=== PATIENT | female | born 1965 | race African-American/Black ===

== ENCOUNTER 2019-10-13 10:28 | Observation (INO) ==
[2019-10-13] MEDS ORDERED: ACETAMINOPHEN 325 MG TABLET PO PRN (16:36)
[2019-10-13] MEDS ORDERED: MAGNESIUM HYDROXIDE SUSP 30 ML UDCUP PO PRN (16:36)
[2019-10-13] MEDS ORDERED: PROMETHAZINE INJ 25 MG in SODIUM CHLORIDE 0.9% 50 ML IV PRN (16:43)
[2019-10-13] MEDS: DEXTROSE 5% LACTATED RINGERS 1,000 ML IV SCH (17:11)
[2019-10-13] MEDS: ENOXAPARIN 30 MG/0.3 ML SYRINGE SUBCUT SCH (17:12)
[2019-10-13] MEDS: KETOROLAC 30 MG/1 ML VIAL IV PRN (17:15)
[2019-10-13] MEDS: HYDROmorphone 2 MG/1 ML VIAL IV PRN ×2 (17:19→21:36)
[2019-10-13] MEDS: WATER SWISH/SWAL PRN ×2 (18:29→21:35)
[2019-10-13] MEDS: VISCOUS LIDOCAINE 2% SWISH/SWAL PRN ×2 (18:29→21:35)
[2019-10-13] MEDS: PANTOPRAZOLE 40 MG VIAL IV SCH (21:35)
[2019-10-14] MEDS: HYDROmorphone 2 MG/1 ML VIAL IV PRN ×2 (02:17→20:48)
[2019-10-14] MEDS: DEXTROSE 5% LACTATED RINGERS 1,000 ML IV SCH ×3 (02:48→20:47)
[2019-10-14] MEDS: LEVOTHYROXINE 100 MCG VIAL IV SCH (06:09)
[2019-10-14] MEDS ORDERED: diphenhydrAMINE 50 MG/1 ML VIAL IV PRN (06:56)
[2019-10-14] MEDS ORDERED: ZOLPIDEM 5 MG TABLET PO PRN (06:57)
[2019-10-14 07:33] LABS: Basophils % 0.4 % (0.0-0.8); Eosinophils # 0.1 10*3/uL (0.0-0.87); Eosinophils % 1.2 % (0.00-10.9); Hematocrit 36.7 VOL% (35.7-47.0); Immature Granulocytes % 0.3 %; Immature Granulocytes Absolute 0.02 #; Lymphocytes % 27.6 % (21.3-54.2); Mean Corpuscular Volume 91.3 FL (87-102); Monocytes % 8.1 % (1.7-12.7); Neutrophils % 62.4 % (38.7-73.9); Platelet Count 396 T/CUMM (130-400); Red Blood Count 4.02 MC/CUMM (3.8-5.5); Red Cell Distribution Width 13.1 % (9.3-17.3); White Blood Count 7.4 T/CUMM (4-12)
[2019-10-14 07:57] LABS: Albumin 3.1 G/DL (3.4-5.0); Bilirubin,Total 0.6 MG/DL (0.2-1.0); Calcium 8.7 MG/DL (8.5-10.1); Osmolality,Calculated 268.1 MOS/KG (273-304); Total Protein 7.3 G/DL (6.4-8.3)
[2019-10-14] MEDS: BUDESONIDE/FORMOTEROL 160-4.5 INHALER 6 GM INH SCH (10:26)
[2019-10-14] MEDS: VISCOUS LIDOCAINE 2% SWISH/SWAL PRN (10:27)
[2019-10-14] MEDS: WATER SWISH/SWAL PRN (10:27)
[2019-10-14] MEDS: PANTOPRAZOLE 40 MG VIAL IV SCH ×2 (10:28→20:47)
[2019-10-14] MEDS: KETOROLAC 30 MG/1 ML VIAL IV PRN ×2 (10:29→16:03)
[2019-10-14] MEDS: ENOXAPARIN 30 MG/0.3 ML SYRINGE SUBCUT SCH (16:04)
[2019-10-14] MEDS: ONDANSETRON 4 MG/2 ML VIAL IV PRN (20:49)
[2019-10-15] MEDS: HYDROmorphone 2 MG/1 ML VIAL IV PRN (02:31)
[2019-10-15] MEDS: ONDANSETRON 4 MG/2 ML VIAL IV PRN (02:32)
[2019-10-15 05:43] LABS: Basophils # 0.1 10*3/uL (0.0-0.2); Basophils % 0.7 % (0.0-0.8); Eosinophils # 0.3 10*3/uL (0.0-0.87); Eosinophils % 3.8 % (0.00-10.9); Hemoglobin 10.9 GM/DL (12.0-16.0); Immature Granulocytes % 0.3 %; Immature Granulocytes Absolute 0.02 #; Lymphocytes # 2.9 10*3/uL (1.4-4.0); Lymphocytes % 38.5 % (21.3-54.2); Mean Corpuscular HGB Conc 30.3 GM/DL (32-36); Mean Corpuscular Volume 92.1 FL (87-102); Mean Platelet Volume 9.6 FL (9.6-12.0); Neutrophils % 46.7 % (38.7-73.9); Platelet Count 380 T/CUMM (130-400); Red Blood Count 3.91 MC/CUMM (3.8-5.5); Red Cell Distribution Width 13.2 % (9.3-17.3); White Blood Count 7.4 T/CUMM (4-12)
[2019-10-15 06:08] LABS: Albumin 3.2 G/DL (3.4-5.0); Bilirubin,Total 0.4 MG/DL (0.2-1.0); Calcium 8.6 MG/DL (8.5-10.1); Osmolality,Calculated 274.5 MOS/KG (273-304); Total Protein 7.3 G/DL (6.4-8.3)
[2019-10-15] MEDS: DEXTROSE 5% LACTATED RINGERS 1,000 ML IV SCH ×2 (06:21→12:34)
[2019-10-15] MEDS: LEVOTHYROXINE 100 MCG VIAL IV SCH (06:49)
[2019-10-15] MEDS: VISCOUS LIDOCAINE 2% SWISH/SWAL PRN (07:54)
[2019-10-15] MEDS: WATER SWISH/SWAL PRN (07:54)
[2019-10-15 08:06] VITALS: BP 122/73
[2019-10-15] MEDS: PANTOPRAZOLE 40 MG VIAL IV SCH (10:21)
[2019-10-15] MEDS: KETOROLAC 30 MG/1 ML VIAL IV PRN (10:23)
[2019-10-15] MEDS: BUDESONIDE/FORMOTEROL 160-4.5 INHALER 6 GM INH SCH (10:24)
== END 2019-10-15 12:28 | disposition home or self-care (01) ==
LOC: N.CT 10:28 → INTOOBSV 12:39 → N.3E 12:39 → N.4E 10-14 12:27
PROVIDERS: ADMIT Internal Medicine Gastroenterology; ATTEND Internal Medicine Gastroenterology